=== PATIENT | male | born 1960 | race Caucasian/White ===

== ENCOUNTER 2016-05-07 09:23 | Inpatient (IN) | payer OTHER ==
--- NOTE | 2016-04-26 17:33 | GHP ---
DATE OF ADMISSION: 05/07/2016 He will be an a.m. admission for surgery on May 07, 2016. PROBLEM: Left hip arthritis. HISTORY OF PRESENT ILLNESS: The patient is a 55-year-old man admitted for a left hip Akash hip resurfacing arthroplasty. He has been having gradually worsening pain in the left hip for about 1 year. It has been particularly severe in the last 4 or 5 months. He is having daily pain and night pain. Walking is painful. Strenuous activities aggravate his pain. He injured the left hip playi [employer] soccer in 1994. After that injury he developed quite a bit of swelling and ecchymosis in the thi gh. He has been using ibuprofen regularly. He has trouble putting on his shoes and socks on the le ft foot. He has not had any cortisone injections. He has failed nonsurgical treatment and is admit vasyl for left hip [place] hip resurfacing arthroplasty. PAST MEDICAL HISTORY: Excellent general health. No known medical problems. No previous history of serious MRSA infections. No history of heart disease, DVT, hepatitis, or sleep apnea. CURRENT MEDICATIONS: None. ALLERGIES: Drug allergies: None. He has seasonal allergies to grass. Metal allergy: None. Late x allergy: None. SOCIAL HISTORY: The patient is . He does not smoke cigarettes, he occasionally drinks alcoh ol. He is self-employed and works from home. He does not have a primary care doctor. FAMILY HISTORY: Noncontributory. PHYSICAL EXAMINATION: GENERAL: He is a fit appearing man. Height 5 feet 6 inches. Weight 180 poun ds. BMI 29.1. EYES: Conjunctivae and sclerae are clear. Pupils are round and reactive. MOUTH: G ood oral hygiene. No loose teeth. CHEST: Clear. HEART: Regular rhythm. No murmurs. EXTREMITIE S: Pertinent findings limited to his left hip. He has full hip extension, 90 degrees of flexion. As he flexes the hip, he develops a 20-degree external rotation contracture and no further internal or external rotation. Abduction 20 degrees. He has well-developed thigh musculature. IMAGING: His films show advanced degenerative arthritis of his left hip. IMPRESSION ON ADMISSION: Left hip degenerative arthritis. He will undergo a left hip [place] hip resurfacing arthroplasty. The surgery has been described to him, including the risks, complications, expectations, and recovery time. I have discussed with jaycob acosta specifically about the risk of dislocation, femoral neck fracture, infection, and sciatic nerve i njury. We have also had a lengthy discussion about the potential risk of metal ions. He understand s that he is very young for hip arthroplasty, and will probably require revision surgery in the [facility] re. The option of a conventional total hip replacement has been discussed and offered to him as ramona mireles. All his questions have been answered, and he consents to surgery for [place] hip resurfacing arthroplasty. /[id number]/MODL
[2016-05-01 11:53] LABS: % IMMATURE GRANULYOCYTES 0.4 % (0.0-1.1); ABSOLUTE IMMATURE GRANULOCYTES 0.03 10^3/uL (0.00-0.10); ADD DIFF? NO; ADD MORPH? NO; ADD SCAN? NO; ATYPICAL LYMPHOCYTE FLAG 0 (0-99); FRAGMENT RBC FLAG 0 (0-99); HEMATOCRIT 44.4 % (40.0-51.0); HEMOGLOBIN 15.3 g/dL (13.7-17.5); LEFT SHIFT FLG 0 (0-99); LIPEMIA HEMOLYSIS FLAG 90 (0-99); MEAN CELL HEMOGLOBIN 32.1 pg (27.9-34.1); MEAN CELL HEMOGLOBIN CONCENTR. 34.5 g/dL (32.4-36.7); MEAN CELL VOLUME 93.1 fL (81.5-99.8); MEAN PLATELET VOLUME 9.2 fL (8.7-11.7); PLATELET CLUMPS FLAG 0 (0-99); PLATELET COUNT 286 10^3/uL (150-400); RED BLOOD CELL COUNT 4.77 10^6/uL (4.40-6.38); RED CELL DISTRIBUTION WIDTH 12.8 % (11.5-15.2)
[~2016-05-07 09:23] MED LIST: ACETAMINOPHEN 325 MG TAB PO ONE; CEFAZOLIN 2 GM/DEXTR 100 ML IV ONE; CHLORHEXIDINE GLUC HIBICLENS 118 ML BTL TP ONE; DEXAMETHASONE 4 MG/ML VIAL IVP ONE; FAMOTIDINE 20 MG TAB PO ONE; POVIDONE-IODINE 20 ML in SODIUM CL IRRIG SOLUTION 500 ML IRR ONE; ROPI/epiNEPH/KETOROLAC JOINT COCKTAIL IU ONE; SKIN ADHESIVE (DERMABOND) 1 EACH TP ONE; TRANEXAMIC ACID 1,600 MG in NS 100 ML IV ONE; ceFAZolin 1 GM/5 ML SYR ONE
[2016-05-07] MEDS ORDERED: LIDOCAINE 1% 2 ML INJ ONE (09:55)
[2016-05-07] MEDS ORDERED: ACETAMINOPHEN 325 MG TAB ONE (09:56)
[2016-05-07] MEDS ORDERED: DEXAMETHASONE 4 MG/ML VIAL ONE (09:56)
[2016-05-07] MEDS ORDERED: FAMOTIDINE 20 MG TAB ONE (09:56)
[2016-05-07] MEDS ORDERED: CEFAZOLIN 2 GM/DEXTROSE/100 ML BAG IV ONE (09:57)
[2016-05-07] MEDS ORDERED: MIDAZOLAM 2 MG/2 ML VIAL ONE ×2 (12:27→12:32)
[2016-05-07] MEDS ORDERED: PROPOFOL/EMULSION 500 MG/50 ML BOTTLE IV ONE (12:28)
[2016-05-07] MEDS ORDERED: ONDANSETRON 4 MG/2 ML VIAL ONE (13:30)
[2016-05-07] MEDS ORDERED: LIDOCAINE 2% 5 ML SDV ONE (13:30)
--- NOTE | 2016-05-07 14:18 | POSTOPPROG ---
Post Op Note Date of Operation: 05/07/16 Surgeon: Esequiel Strickland Personal Assistant: Deangelo/Kenji Anesthesiologist: Nallely Anesthesia: IV Sedation, Spinal Post-op Diagnosis: left hip arthritis Procedure: L BHR Inf/Abcess present in the surg proc area at time of surgery?: No EBL: [id number]
[2016-05-07] MEDS ORDERED: ONDANSETRON 4 MG/2 ML VIAL IVP PRN (14:37)
[2016-05-07] MEDS ORDERED: TEMAZEPAM 15 MG CAP PO PRN (14:37)
[2016-05-07] MEDS ORDERED: PHARMACY PAIN CONSULT 1 EA MISC PRN (14:37)
[2016-05-07] MEDS ORDERED: KETOROLAC 30 MG/1 ML SDV IVP PRN (14:37)
[2016-05-07] MEDS ORDERED: METOCLOPRAMIDE 10 MG/2 ML VIAL IVP PRN (14:37)
[2016-05-07] MEDS ORDERED: traMADol 50 MG TAB PO PRN (14:37)
[2016-05-07] MEDS ORDERED: MAGNESIUM HYDROXIDE 30 ML UDCUP PO PRN (14:37)
[2016-05-07] MEDS ORDERED: diphenhydrAMINE 25 MG CAP PO PRN (14:37)
[2016-05-07] MEDS ORDERED: DIPHENOXYLATE/ATROPINE LOMOTIL 1 TAB PO PRN (14:37)
[2016-05-07] MEDS ORDERED: BISACODYL 10 MG SUPP PR PRN (14:37)
[2016-05-07] MEDS ORDERED: LACTULOSE 20 GM/30 ML UDCUP PO PRN (14:37)
[2016-05-07] MEDS ORDERED: ONDANSETRON DISINTEGRATING 4 MG TAB PO PRN (14:37)
[2016-05-07] MEDS ORDERED: POLYETHYLENE GLYCOL 3350 17 GM PKT PO PRN (14:37)
[2016-05-07] MEDS ORDERED: NS 500 ML IV PRN (14:37)
[2016-05-07] MEDS ORDERED: CYCLOBENZAPRINE 10 MG TAB PO PRN (14:37)
[2016-05-07] MEDS ORDERED: PROMETHAZINE HCL 25 MG SUPPR PR PRN (14:37)
--- NOTE | 2016-05-07 14:58 | GOP ---
[f rep st] OPERATIVE REPORT DATE OF OPERATION: 05/07/2016 SURGEON: Esequiel Strickland MD SHEET METAL DUCT INSTALLER: Vitaliy Bright and Brent Phillip. ANESTHESIA: A combination of Marcaine, spinal, and IV sedation. ANESTHESIOLOGIST: Dr. Dannielle Browning PREOPERATIVE DIAGNOSIS: Left hip degenerative arthritis. POSTOPERATIVE DIAGNOSIS: Left hip degenerative arthritis. PROCEDURE PERFORMED: 05/07/2016, a left hip Akash hip resurfacing arthroplasty. FINDINGS: DESCRIPTION OF PROCEDURE: The patient was given 2 g of IV Ancef preoperatively within 60 minutes of surgery. He also received IV tranexamic acid at a dose of 20 mg/kg. The patient was placed on the operating room table and given spinal anesthesia with Marcaine by Dr. Browning. He was then placed supine and given IV sedation. A Beltran catheter was not used. He wore a compressive stocking and SCD on the nonoperative leg. He was rolled to the right lateral decubitus position. The position was secured with the pegboard table attachment, careful to lock his pelvis in a vertical position. His perineum was isolated plastic adhesive drapes. The left hip and left lower extremity were prepped with ChloraPrep. They were draped free using sterile sheets, stockinette, and [place]an plastic drape. The [employer] Organization timeout was performed to verify the correct patient identity and the correct surgical side. The [place] timeout was also performed. I made a 6-inch straight, oblique posterolateral hip skin incision. The subcutaneous tissues were sharply divided and hemostasis was obtained using electrocautery. The fascia pallavi was identified and split along the axis of its fibers. I then curved posteriorly, and proximally split the fascia of gluteus shazia and bluntly split the muscle fibers in line with their orientation. His sciatic nerve was identified and protected throughout the procedure. The [place]ley self-retaining retractor was inserted. The external rotators and the posterior hip capsule were divided as separate layers at the base of the femoral neck, tagged and reflected posteriorly. The gluteus shazia tendon was divided and tagged in order to improve exposure and release tension on the sciatic nerve. His hip was dislocated posteriorly. I used a sizing gauge to check the diameter of the neck and concluded that 48 mm was the proper head size. I performed a circumferential capsulotomy. I was able to retract the femoral head anteriorly and superiorly, and hold it out of place with appropriate retractors. The remnant of his badly damaged labrum was completely excised. His acetabulum was reamed sequentially up to 54 mm. I selected the [place] monoblock porous-coated acetabular component with an outside diameter of 54 mm. This was firmly impacted and was a very tight fit. I was careful to determine proper inclination anteversion. I used the transverse acetabular ligament and other acetabular bony landmarks to properly orient the cup. Small posterior inferior osteophytes were removed with a rongeur. I was careful to leave a lip of bone and capsule extending beyond the anterior-inferior lip of the metal cup. I then returned to preparation of the femoral head. Using appropriate jigs and guides, I inserted a guidepin into the femoral head and neck. I was careful to position in such a way there would be no notching of the neck. The large sterile metal goniometer was used to check the neck shaft angle. I reamed over the guidepin and inserted the reaming guide. I then used the cylindrical reamer down to the head and neck junction. This was followed by the flat reamer and the chamfer reamer. The head was sized for a 48 mm. There was no damage or impingement to the neck. I drilled a small hole in the lesser trochanter and inserted a suction cannula to create negative pressure in the medullary canal. I removed some small anterior neck osteophytes with a rongeur. Small holes were drilled on the flattened chamfer surfaces of the prepared head for cement anchors. The head was thoroughly cleaned with the pulsating lavage and carefully dried. I used a CarboJet device to blow dry the cancellous surfaces. A single batch of Simplex cement with tobramycin was mixed. At about 50 seconds , I poured the liquid cement into the head component, inserted on the femoral head and impacted it into place. The excess cement was removed before it hardened. The acetabulum was irrigated, cleaned and inspected, and the hip was reduced. Stability and range of motion were checked. I placed my finger along the anterior aspect of the acetabular component and flexed the hip to 110 degrees. There was no anterior impingement. The suction cannula on the lesser trochanter was removed. The wound was thoroughly irrigated with a dilute Betadine solution. 40 mL of the joint anesthetic cocktail were injected into the capsule, the deep musculature, and subcutaneous tissues along the skin edges. His sciatic nerve was reinspected and looked unharmed. The external rotators and the posterior hip capsule were repaired in separate layers with #2 FiberWire sutures through drill holes in the greater trochanter. This provided a strong posterior capsular and external rotator repair. The gluteus shazia tendon was repaired with 2 interrupted [id number] #2 FiberWire sutures. The fascia pallavi was repaired first with 2 interrupted [id number] #2 FiberWire sutures, followed by a running #2 barbed Ethicon StrataFix PDO suture. The subcutaneous tissues were closed with a running 0 barbed Ethicon StrataFix Monoderm suture. The skin was closed with a running 3-0 barbed Ethicon StrataFix Monoderm subcuticular suture. The skin edges were reapproximated and sealed with Dermabond glue. The wound was covered with a strip of Telfa, and everything was held in place with a piece of clear plastic Tegaderm. The estimated blood loss was 400 mL. I used a [employer] Akash hip resurfacing system. The acetabular component was 54 mm in diameter and press-fit. The femoral head was 48 mm and cemented. He was awakened from anesthesia and rolled to the supine position on his [facility]. A long-leg compressive stocking and SCD were applied to the operative leg. He wore a stocking and SCD on the opposite leg during the procedure. An abduction pillow was placed between his knees. He was taken to PACU in satisfactory condition. There were no recognized intraoperative complications. The sponge and needle counts were correct on 2 occasions. Vitaliy Bright and Brent Phillip acted as surgical assistants. Their assistance was a medical necessity. /[id number]/MODL MTDD
[2016-05-07] MEDS ORDERED: LR 1,000 ML IV SCH (15:00)
[2016-05-07] MEDS: ACETAMINOPHEN 325 MG TAB PO SCH ×2 (18:35→23:57)
[2016-05-07] MEDS: TRANEXAMIC ACID 650 MG TAB PO SCH ×2 (18:36→20:29)
[2016-05-07] MEDS: oxyCODONE IR 5 MG TAB PO PRN ×2 (20:26→23:56)
[2016-05-07] MEDS: FAMOTIDINE 20 MG TAB PO SCH (20:27)
[2016-05-07] MEDS: SENNOSIDES/DOCUSATE SODIUM TAB PO SCH (20:27)
[2016-05-07] MEDS: ASPIRIN 325 MG TAB PO SCH (20:28)
[2016-05-07] MEDS: ceFAZolin 2 GM/DEXTROSE 100 ML IV SCH (20:30)
[2016-05-08] MEDS: ceFAZolin 2 GM/DEXTROSE 100 ML IV SCH (04:25)
[2016-05-08 04:58] LABS: HEMATOCRIT 36.9 % (40.0-51.0); HEMOGLOBIN 12.5 g/dL (13.7-17.5)
[2016-05-08] MEDS: ACETAMINOPHEN 325 MG TAB PO SCH (05:30)
[2016-05-08] MEDS: oxyCODONE IR 5 MG TAB PO PRN ×2 (05:31→09:58)
[2016-05-08 08:26] VITALS: BP 128/80; PULSE 72; RESP 15; TEMP 98.7; O2SAT 97
--- NOTE | 2016-05-08 08:37 | SOAPPROG ---
SOAP Progress Note Assessment/Plan: Assessment: POD #1. s/p L BHR Awake, alert, afebrile. VSS. H/H ok. Normal sciatic nerve function. Dressing clean and dry. Mild pain. OOB with PT. Post op films look good. Plan: Discharge to home later today. 05/08/16 08:36 Objective: Vital Signs Temp Pulse Resp BP Pulse Ox 37.1 C 72 15 128/80 H 97 05/08/16 08:00 05/08/16 08:00 05/08/16 08:00 05/08/16 08:00 05/08/16 08:00 Laboratory Results 05/08/16 04:25 05/07/16 05/08/16 05/09/16 05:59 05:59 05:59 Intake Total 3324 Output Total 600 Balance 2724 ICD10 Worksheet Patient Problems: Problems Problem Status Onset Primary osteoarthritis of left hip Acute
[2016-05-08] MEDS ORDERED: FERROUS SULFATE 140 MG TAB.ER PO SCH (09:00)
[2016-05-08] MEDS: SENNOSIDES/DOCUSATE SODIUM TAB PO SCH (09:58)
[2016-05-08] MEDS: ASPIRIN 325 MG TAB PO SCH (09:59)
[2016-05-08] MEDS: TRANEXAMIC ACID 650 MG TAB PO SCH (10:00)
[2016-05-08] MEDS: FAMOTIDINE 20 MG TAB PO SCH (10:00)
== END 2016-05-08 12:26 | disposition home or self-care (01) | DRG 470 ==
LOC: F3N 09:23
PROVIDERS: ADMIT Orthopaedic Surgery; ATTEND Orthopaedic Surgery
PROC: 0SUB0BZ Supplement Left Hip Joint with Resurfacing Device, Open Approach (ICD-10-PCS; principal; 2016-05-07 11:45)
DX: M16.12 Unilateral primary osteoarthritis, left hip (principal)
CPT/HCPCS: 97116-GP; 97161-GP; 97165-GO; C1713; C1769; J0171; J0690; J1100; J1885; J2250; J2405; J2704; J2795